=== PATIENT | female | born 1975 | race Caucasian/White ===

== ENCOUNTER 2022-08-23 08:39 | Day surgery (SDC) | payer BC, SELFPAY ==
[2022-08-23] VITALS (24 sets, daily range): BP systolic 100–124; BP diastolic 62–82; PULSE 54–75; RESP 13–18; TEMP 36.2–36.6; O2SAT 91–98; BMI 29.5
[2022-08-23 08:59] LABS: HCG Qualitative* Negative (Negative)
[2022-08-23] MEDS: LACTATED RINGERS 1000 ML 1,000 ML 100 ML IV ×2 (09:00→11:26)
[2022-08-23] MEDS: SODIUM CHLORIDE 0.9 % (FLUSH) 10 ML SYRINGE IVF (09:15)
[2022-08-23] MEDS: CLINDAMYCIN 900 MG/6 ML VIAL IVPB (10:15)
--- NOTE | 2022-08-23 10:46 | P.NB_ITS ---
Nerve Block Nerve Block Time Seen by Provider: 10:17 Date Seen: 08/23/22 Type of block requested by surgeon for post-operative analgesia: TAP Time out performed: Yes Verification of patient name: Yes Verification of date of : Yes Site marking: site marked Name of person performing procedure: Jayce Continuous monitoring Was continuous monitoring of O2 sat, B/P, secured entrance monitor, recorded every 15 minutes?: Yes Procedure Checklist: sterile prep, needles and gloves Ultrasound guided. Images saved: Yes Medications given in 5ml increments after negative aspiration: Marcaine %: 0.25 mL: 30 Needle gauge: 20 and Exparel mL: 10 Patient tolerated procedure well: Yes Additional comments: Needle noted adjacent to nerve Block Charges Block Charge (with Pro Fee): TAP Bilateral Use of Ultrasound Machine for Block: Yes- US Guidance/pain block
[2022-08-23] MEDS: BUPIVACAINE 0.25% 30 ML INJECTION (12:20)
--- NOTE | 2022-08-23 12:34 | PM.GSPRC ---
Operative Note Date of procedure: 08/23/22 Type of Procedure: 1. Laparoscopic incisional hernia repair with mesh 2. Umbilical hernia repair Procedure Description: After discussing the risks and benefits of the procedure, the patient signed informed consent.? The operative site was marked and the patient was brought to the operating room and placed on the operating table in supine position.? Care was taken to pad the patient's pressure points.?? The patient was then intubated by anesthesia.?? The operative site was then prepped and draped in the usual sterile fashion.? A time-out was then performed. Enter into the abdomen was via Nettles technique just above the umbilicus. An incision was created and dissection was taken down to the subcutaneous fat. The patient's umbilical hernia was encountered. The sac was entered and the abdominal cavity was then entered. The hernia was containing omental fat. Nettles port was placed. A left upper quadrant 5 mm port as well as a left lateral abdomen 5 mm port were then placed under direct vision. The abdomen was surveyed. There were omental adhesions to the abdominal wall below the umbilicus. These were taken down with a combination of sharp dissection with scissors, cautery and blunt dissection. A small bleeding vessel was cauterized and clipped. Once this was done the hernia was evident in the right lower quadrant. There is no bowel within this; it had all reduced spontaneously. The hernia sac was then incised along the medial aspect. This was then removed from the hernia cavity itself. The lateral aspect was noted to contain the epigastric vessels, abutting the edge of the fascia. With care the hernia sac was dissected away from this, however I did elect to clip the vessels proximally and distally around the area of dissection to prevent bleeding as they were within the area of dissection. Once this was done I examined the abdominal wall. It seemed as though the fascial edges would come together medial to lateral as opposed to superior to inferior. I decreased the abdominal pressure to 12 and then using AV lock suture I reapproximated the fascial edges. I did go around the epigastric vessels to avoid bleeding. Once this was done peritoneal flap that I had created was amputated and removed from the abdomen and discarded. The hernia measured previously approximately 5 x 5 cm and for this reason I obtained a piece of Ventralight ST mesh measuring 15 x 15 cm. This was placed in the abdomen. I made a skin jeri over the center of the hernia and through this passed a Riley-Forrest device. I then grasped the echo positioning string on the mesh and pulled this to the abdominal wall. Then using an Opti Fix Tacker I tacked the mesh circumferentially. Prior to doing this I decreased the abdominal pressure to 9. I then removed the positioning system intact and placed some additional absorbable tacks in the middle of the mesh. Once this was done the abdomen was examined for hemostasis which appeared excellent. The abdomen was then desufflated and I turned my attention to umbilical hernia repair. I removed the umbilical stalk from the hernia sac. The hernia was just slightly over 1 cm. The hernia sac was then discarded. I then closed the fascia in a vest over pants fashion. This was done with 0 Nurolon. I also placed some interrupted 0 Nurolon suture on the repair as well. The umbilicus was then reapproximated to the fascia using 3-0 Vicryl. The umbilical was then closed with 3 0 Vicryl dermal stitches. The rest of the incisions were then closed with 4-0 Monocryl subcuticular stitches. ? Sterile dressings were then applied. ? The patient was then woken and transported to the recovery area in stable condition. ? The patient tolerated the procedure well. Findings: 5 x 5 cm right lower quadrant incisional hernia Fat containing umbilical hernia. Anesthesia: GETA Surgeon: Cheyenne Pugh MD Estimated blood loss (mL): 10 Condition: stable Disposition: PACU
--- NOTE | 2022-08-23 12:42 | W.ANESCHARGE ---
Anesthesia Charges Start Date/Time Anesthesia Start Date: 08/23/22 Anesthesia Start Time: 10:10 Stop Date/Time Anesthesia Stop Date: 08/23/22 Anesthesia Stop Time: 12:43 Summary Emergency: No
[2022-08-23] MEDS: fentaNYL 100 MCG/2 ML inj 50 MCG IVP (13:25)
--- NOTE | 2022-08-23 13:27 | W.ANESCHARGE ---
Anesthesia Charges Start Date/Time Anesthesia Start Date: 08/23/22 Anesthesia Start Time: 10:10 Stop Date/Time Anesthesia Stop Date: 08/23/22 Anesthesia Stop Time: 12:43 Summary Emergency: No
[2022-08-23] MEDS: HYDROCODONE-ACETAMIN 5-325 MG 1 TAB PO ×3 (14:27→20:20)
[2022-08-23] MEDS: HYDROmorphone 0.5 mg/0.5 ml inj IVP (14:41)
[2022-08-23] MEDS: LACTATED RINGERS 1000 ML 1,000 ML 50 ML IV (15:45)
--- NOTE | 2022-08-23 19:35 | PC.NURSE ---
Tolerating regular diet. Lap Sites x4 intact with surgical glue. Pain managed with PRN medications. Up Independent to the toilet.
[2022-08-23] MEDS: GABAPENTIN 100 MG CAPSULE 200 MG PO (20:21)
[2022-08-24] MEDS: HYDROCODONE-ACETAMIN 5-325 MG 1 TAB PO ×3 (00:05→08:31)
[2022-08-24 03:00] VITALS: BP 101/73; PULSE 64; RESP 18; TEMP 36.3; O2SAT 97
--- NOTE | 2022-08-24 06:39 | PC.NURSE ---
-: SBA to assist with IV pole. c/o pain 3-02/02, Byron given with relief. Lap sites MIRNA, CDI. Abd binder and active ice on.
[2022-08-24] MEDS: KETOROLAC 15 MG/ML inj IVP (08:03)
[2022-08-24] MEDS: GABAPENTIN 100 MG CAPSULE 200 MG PO (08:32)
[2022-08-24 08:38] VITALS: BP 101/73; PULSE 65; RESP 14; TEMP 36.3; O2SAT 96
--- NOTE | 2022-08-24 09:16 | PM.DS1 ---
DS: Providers Provider Date Seen: 08/24/22 Primary care physician: Guido Vivas MD Attending Physician on discharge: Cheyenne Pugh MD DS: Diagnosis Discharge Diagnosis (1) S/P ventral herniorrhaphy: Status: Acute DS: Summary Hospital Course Hospital Course: Shannan was admitted after laparoscopic ventral and open umbilical hernia repair. She was admitted to the hospital postoperatively for pain control. On postop day 1 she was doing well, tolerating a diet urinating without difficulty and had good pain control. Time Spent with Patient Time attestation: Total time spent providing and/or coordinating discharge services: Exam Narrative: Exam Narrative: General: No acute distress Abdomen: Soft. Appropriately tender. Some bruising over the old hernia site. No erythema. No hematoma. Const: Vital Signs, click to edit/add: Vital Signs - 24 hr 08/23/22 12:40 08/23/22 12:45 08/23/22 12:50 Temperature 97.4 F L Pulse Rate 57 L 54 L 57 L Pulse Rate [Right Pulse Oximeter] Respiratory Rate 16 16 16 Blood Pressure 108/67 109/70 107/66 Blood Pressure [Le ft Arm] Blood Pressure [Ri ght Arm] Pulse Oximetry 94 98 95 Oxygen Delivery Me thod Room Air Room Air Room Air 08/23/22 12:55 08/23/22 13:00 08/23/22 13:05 Temperature 97.9 F Pulse Rate 56 L 57 L 58 L Pulse Rate [Right Pulse Oximeter] Respiratory Rate 16 16 16 Blood Pressure 109/67 104/65 106/63 Blood Pressure [Le ft Arm] Blood Pressure [Ri ght Arm] Pulse Oximetry 97 95 96 Oxygen Delivery Me thod Room Air Room Air Room Air 08/23/22 13:10 08/23/22 13:14 08/23/22 13:30 Temperature 97.8 F 97.3 F L Pulse Rate 59 L 57 L 57 L Pulse Rate [Right Pulse Oximeter] Respiratory Rate 16 16 16 Blood Pressure 112/62 111/68 107/63 Blood Pressure [Le ft Arm] Blood Pressure [Ri ght Arm] Pulse Oximetry 95 94 93 Oxygen Delivery Me thod Room Air Room Air Room Air 08/23/22 13:45 08/23/22 14:00 08/23/22 14:43 Temperature Pulse Rate 61 60 59 L Pulse Rate [Right Pulse Oximeter] Respiratory Rate 16 16 16 Blood Pressure 104/62 105/66 124/70 Blood Pressure [Le ft Arm] Blood Pressure [Ri ght Arm] Pulse Oximetry 93 94 94 Oxygen Delivery Me thod Room Air Room Air Room Air 08/23/22 15:00 08/23/22 15:30 08/23/22 16:00 Temperature Pulse Rate 60 58 L Pulse Rate [Right Pulse Oximeter] 75 Respiratory Rate 16 16 15 Blood Pressure 124/71 120/64 Blood Pressure [Le ft Arm] 110/75 Blood Pressure [Ri ght Arm] Pulse Oximetry 91 93 92 Oxygen Delivery Me thod Room Air Room Air Room Air 08/23/22 16:40 08/23/22 17:00 08/23/22 18:30 Temperature 97.1 F L 97.2 F L Pulse Rate Pulse Rate [Right Pulse Oximeter] 61 59 L 60 Respiratory Rate 15 14 13 Blood Pressure Blood Pressure [Le ft Arm] 105/74 111/74 Blood Pressure [Ri ght Arm] 100/66 Pulse Oximetry 93 95 97 Oxygen Delivery Me thod Room Air 08/23/22 19:31 08/23/22 19:47 08/23/22 20:20 Temperature 97.9 F 97.9 F 97.9 F Pulse Rate Pulse Rate [Right Pulse Oximeter] 68 Respiratory Rate 16 Blood Pressure Blood Pressure [Le ft Arm] 102/66 Blood Pressure [Ri ght Arm] Pulse Oximetry 96 Oxygen Delivery Me thod Room Air 08/23/22 21:44 08/23/22 23:00 08/23/22 23:00 Temperature 97.9 F 98 F Pulse Rate Pulse Rate [Right Pulse Oximeter] 65 65 Respiratory Rate 16 Blood Pressure Blood Pressure [Le ft Arm] 124/82 Blood Pressure [Ri ght Arm] Pulse Oximetry 96 Oxygen Delivery Me thod Room Air 08/24/22 03:00 08/24/22 08:38 Temperature 97.4 F L 97.3 F L Pulse Rate Pulse Rate [Right Pulse Oximeter] 64 65 Respiratory Rate 18 14 Blood Pressure Blood Pressure [Le ft Arm] 101/73 101/73 Blood Pressure [Ri ght Arm] Pulse Oximetry 97 96 Oxygen Delivery Me thod Room Air Room Air Discharge Plan Discharge Disposition: Home, Self-Care Discharging Surgeon: Cheyenne Pugh Follow-Up Appointment: 2 weeks Prescriptions: New hydrocodone-acetaminophen 5-325 mg Tablet 1 - 2 tab PO Q6H PRN (Reason: Pain) Qty: 30 0RF gabapentin 100 mg Capsule 200 mg PO TID Qty: 21 0RF Activity Level: No strenuous activity Activity Detail: No lifting > 20 lbs x 4 weeks Discharge Diet: Regular Patient Instructions: Hydrocodone/Acetaminophen (By mouth), Gabapentin (By mouth), Laparoscopic Herniorrhaphy (DC), Surgical Site Infections (DC), General Anesthesia (DC), Post-Operative Instructions: Hernia Repair Additional Instructions: Wound care: Your sutures are under the skin and will dissolve over time. Leave steri strips (white bandages) over incisions until they fall off (or remove after 7 days). OK to shower tomorrow but avoid bathing, soaking or swimming for 2 weeks. Pat the incisions dry. No need to wash or scrub the area. Apply ice to the area as needed for swelling. It is also OK to use a heating pad if this provides more comfort to you. Pain control: You were prescribed a pain medication. This medication contains acetaminophen (Tylenol). If you are taking your prescribed pain pills 4 times daily, do not take additional acetaminophen. As your pain improves, you can try taking acetaminophen instead of the prescribed pain pill. It is ok to take Ibuprofen or Naproxen (per directions on packaging). This medication helps with inflammation and swelling. Take an [id number]-odv-iszifpl stool softener while you are taking prescribed pain medications to help alleviate constipation. I recommend Senna and/or Colace. Take as directed on package. If you have not had a bowel movement in 3 days, try taking Miralax as directed on the package. All of these are available over the counter. Follow-up Follow up with Dr. Pugh in 2-3 weeks Please call if you are experiencing severe pain, nausea, vomiting, difficulty urinating, fever or have not had bowel movement in 4 days after surgery. Forms: Work/Release Restrictions Follow-up: Cheyenne Pugh MD [Staff Physician] - 09/06/22 1:00 pm ([facility]. [phone]) Guido Vivas MD [Primary Care Provider] - Discharge Orders: Discharge Order (Routine); Ordered 08/24/22 Ordered By: Cheyenne Pugh
--- NOTE | 2022-08-24 12:00 | PC.NURSE ---
Patient alert and oriented x4, has lap sites x4, patient stated pain was 4/10 and managed with PRN pain medications, tolerating a regular diet no N/V. Patient up independently. Discontinued saline lock, reviewed discharge instructions with patient and . supportive. Patient discharged to home at 1100 with .
== END 2022-08-24 11:00 | disposition home or self-care (01) ==
LOC: OR 08:41 → MEDSURG 08:42
PROVIDERS: PCP Family Medicine; Visit Provider Surgery
PROC: 0WQF4ZZ Repair Abdominal Wall, Percutaneous Endoscopic Approach (ICD-10-PCS; CPT 49654; principal; 2022-08-23 10:00)
DX: K43.2 Incisional hernia without obstruction or gangrene (principal); K42.9 Umbilical hernia without obstruction or gangrene
CPT/HCPCS: 49654; 49585; 00790; 00832; 64488; 76942; 84703; A4467; A9270; C1781; C9290; J0330; J1100; J1170; J1200; J1885; J2405; J2704; J2710; J3010; J3490; J7120; S0077

== ENCOUNTER 2023-07-11 08:31 | Outpatient (CLI) | payer OTHER, SELFPAY | END 2023-07-11 08:32 | disposition home or self-care (01) | PROVIDERS: PCP Family Medicine; Visit Provider Family Medicine | DX: Z00.00 Encounter for general adult medical examination without abnormal findings (principal); Z82.3 Family history of stroke; Z11.59 Encounter for screening for other viral diseases; Z13.6 Encounter for screening for cardiovascular disorders | CPT/HCPCS: 80053; 80061; 81241; 84146; 85240; 85245; 85246; 85384; 85610; 85730; 86803 ==

== ENCOUNTER 2023-07-18 07:51 | Outpatient (CLI) | payer OTHER, SELFPAY ==
--- NOTE | 2023-07-18 08:00 | CRLHL7_ITS ---
For Patients: As a result of the Century Cures Act, medical imaging exams and procedure reports are released immediately into your electronic medical record. You may view this report before your referring provider. If you have questions, please contact your health care provider. Indication: Intra-abdominal and pelvic swelling, mass and lump, check for hernia reoccurrence Technique: Noncontrast CT abdomen and pelvis Please note that all CT scans at this facility use dose modulation, iterative reconstruction, and/or weight-based dosing when appropriate to reduce radiation dose to as low as reasonably achievable. Comparison: 01/12/2022 Findings: Postoperative changes of right lower quadrant abdominal wall hernia repair noted. Postop changes to the rectus abdominus muscle noted without fluid collection, abscess, subcutaneous emphysema or recurrent hernia. The bladder is normal. Normal noncontrast enhanced uterus. Ovaries appear normal. No bowel obstruction. Similar mildly prominent right lower quadrant mesenteric lymph nodes. Numerous subcentimeter central mesenteric lymph nodes also again noted. Normal noncontrast enhanced liver. Gallbladder is normal. Normal pancreas. Spleen normal. Normal adrenal glands. No hydronephrosis. No solid renal mass. Punctate calcification within the right kidney. Mild dependent atelectasis noted in both lung bases. Stable fat filled periumbilical hernia measuring 2.1 cm. Impression: Postoperative changes of right lower quadrant hernia repair without recurrent hernia, seroma or abscess. Postop changes to the rectus abdominus muscle noted accounting for the clinical symptoms. Stable mildly prominent lymph nodes within mesenteric fat, particularly in the right lower quadrant. Please note that all CT scans at this facility use dose modulation, iterative reconstruction, and/or weight-based dosing when appropriate to reduce radiation dose to as low as reasonably achievable. Dictated by Guido Castro MD @ 07/18/2023 9:17:08 AM (Electronically Signed)
== END 2023-07-18 07:52 | disposition home or self-care (01) ==
LOC: CT 07:52
PROVIDERS: PCP Family Medicine; Visit Provider Surgery
DX: R19.00 Intra-abdominal and pelvic swelling, mass and lump, unspecified site (principal)
CPT/HCPCS: 74176

== ENCOUNTER 2023-08-03 13:05 | Outpatient (CLI) | payer OTHER, SELFPAY ==
--- NOTE | 2023-08-03 13:20 | CRLHL7_ITS ---
For Patients: As a result of the Century Cures Act, medical imaging exams and procedure reports are released immediately into your electronic medical record. You may view this report before your referring provider. If you have questions, please contact your health care provider. BILATERAL SCREENING MAMMOGRAM WITH COMPUTER-AIDED DETECTION AND TOMOSYNTHESIS TECHNIQUE: CC and MLO views were obtained. These mammographic images have been obtained using full-field digital technique. These mammographic images were interpreted with the benefit of computer-aided detection. Breast Tomosynthesis was used in this interpretation. COMPARISON FILM: 08/24/21, 08/20/20, 12/22/18. FINDINGS: There are scattered areas of fibroglandular density IMPRESSION: There is no radiographic evidence for malignancy. ASSESSMENT: BI-RADS Category 1: Negative RECOMMENDATION: Routine screening mammogram in 1 year. A lay language report of this examination will be provided to the patient. Guido Castro M.D. Diagnostic Radiologist [email or web address] JASON/Dictated by: uGido Castro MD @ 08/04/2023 12:46:00 PM (Electronically Signed)
== END 2023-08-03 13:06 | disposition home or self-care (01) ==
LOC: MAMMO 13:06
PROVIDERS: PCP Family Medicine; Visit Provider Family Medicine
DX: Z12.31 Encounter for screening mammogram for malignant neoplasm of breast (principal)
CPT/HCPCS: 77063; 77067

== ENCOUNTER 2023-08-08 11:50 | Outpatient (CLI) | payer OTHER, SELFPAY | END 2023-08-08 11:51 | disposition home or self-care (01) | PROVIDERS: PCP Family Medicine; Visit Provider Obstetrics & Gynecology | DX: N97.9 Female infertility, unspecified (principal) | CPT/HCPCS: 82670; 83001; 83520; 84146; 84443 ==

== ENCOUNTER 2024-03-19 07:28 | Outpatient (CLI) | payer OTHER, SELFPAY | END 2024-03-19 07:29 | disposition home or self-care (01) | LOC: NFLDREF 03-21 04:37 | PROVIDERS: PCP Family Medicine; Referring Provider Family Medicine; Visit Provider Physician Assistant Medical | DX: R39.15 Urgency of urination (principal); N39.0 Urinary tract infection, site not specified; B37.2 Candidiasis of skin and nail | CPT/HCPCS: 87086; 87186 ==

== ENCOUNTER 2024-03-21 16:11 | Emergency (ER) | payer OTHER, SELFPAY ==
[2024-03-21] VITALS (14 sets, daily range): BP systolic 102–147; BP diastolic 69–93; PULSE 58–80; RESP 16; TEMP 37.2; O2SAT 87–98; BMI 32.4
--- NOTE | 2024-03-21 17:05 | ED_ITS ---
HPI - Altered Mental Status General Chief Complaint: Altered Mental Status Stated Complaint: UC M and T-UTI-given meds now mood swings Time Seen by Provider: 03/21/24 16:27 History of Present Illness HPI narrative: This 48-year-old female comes in because of excessive mood swings. 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 She came into urgent care 2 days ago because of dysuria symptoms. She was prescribed Keflex and Diflucan and has taken those medicines until the end of yesterday. Yesterday she began having a labile mood. She did go to another urgent care visit and had a complete blood count drawn with normal results. Her dysuria symptoms have returned back to normal but she is rather labile in her mood. Within a minute or 2 she can be crying and then laughing. She does not have any confusion or disorientation. She denies using any alcohol or street drugs. She does not take any other medicines except for an antidepressant medicine which she did not take this morning. She denies any exposure to chemicals on the farm. Related Data Previous Rx's ?Medication ?Instructions ?Recorded escitalopram oxalate 10 mg tablet 10 mg PO QDAY #90 tabs 09/12/23 (Lexapro) cephalexin 500 mg capsule 500 mg PO BID 7 days #14 caps 03/19/24 fluconazole 200 mg tablet 200 mg PO .qod #2 tabs 03/19/24 (Diflucan) Allergies Allergy/AdvReac Type Severity Reaction Status Date / Time penicillin V Allergy Severe Verified 03/21/24 16:30 prednisone Allergy Intermediate Agitated Verified 03/21/24 16:30 Review of Systems Status of ROS: Reports: 10 or more systems reviewed and unremarkable except as noted in History and below Narrative: Constitutional: No fevers, no weight gain or loss. Eyes: No discharge. No vision changes. HENT: No congestion, no sore throat, no ear pain. Cardiovascular: No chest pain, no palpitations. Respiratory: No shortness of breath, no wheezes, no cough. Gastrointestinal: No abdominal pain, no vomiting, no diarrhea. Genitourinary: No dysuria, no hematuria. Musculoskeletal: Normal range of motion. Skin: No rashes, no pruritis. Neurological: No dizziness, weakness, sensory change, speech change. Endo/Heme/Allergies: No bruising or bleeding. No polydipsia. Pysch: no suicidality, no anxiety, no insomnia. Labile mood. All other systems reviewed and are negative. [facility] Medical History (Updated 03/21/24 @ 19:37 by Justice Machado MD) Yeast dermatitis ?B37.2 - Candidiasis of skin and nail (ICD-10) UTI (urinary tract infection) ?N39.0 - Urinary tract infection, site not specified (ICD-10) Thrombosed external hemorrhoid ?K64.5 - Perianal venous thrombosis (ICD-10) Benign positional vertigo ?H81.10 - Benign paroxysmal vertigo, unspecified ear (ICD-10) Surgical History (Updated 08/08/23 @ 14:24 by Trina Toth MD) Incisional hernia ?K43.2 - Incisional hernia without obstruction or gangrene (ICD-10) Umbilical hernia ?K42.9 - Umbilical hernia without obstruction or gangrene (ICD-10) History of tonsillectomy ?Z90.89 - Acquired absence of other organs (ICD-10) H/O pelvic surgery ?Z98.890 - Other specified postprocedural states (ICD-10) S/P section ?Z98.891 - History of uterine scar from previous surgery (ICD-10) Family History (Updated 07/11/23 @ 08:35 by Leda Valentin MD) Mother Breast cancer Paternal Grandmother Breast cancer Diabetes Father Diabetes Heart disease Pulmonary embolism Paternal Grandmother Stroke Maternal Grandmother Heart disease Social History (Updated 06/23/22 @ 13:47 by Cheyenne Pugh MD) 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 Minimal alcohol use. Highest level of school completed/degree received: Master's degree Smoking Status: Never smoker How often do you have a drink containing alcohol: never AUDIT-C Alcohol total score: 0 Non-prescribed substance use: denies use Caffeine: Yes (soda) Little interest or pleasure in doing things: not at all Feeling down, depressed, or hopeless: not at all service: No Exam Narrative: Exam Narrative: Constitutional: Well-developed, well-nourished, no acute distress. HEENT: Normocephalic, atraumatic. Neck: Normal range of motion. Nontender. Supple. Heart: Regular. No murmurs. Normal rate. Intact distal pulses. Lungs: Clear to auscultation. No chest discomfort. No wheezes, rhonchi, or rales. Abdomen: Normal bowel sounds. Nontender. No rebound tenderness. Genitalia: Deferred. Back: No midline tenderness. Normal range of motion. Extremities: Normal range of motion. No injury. Skin: Intact. No rash. Warm. No erythema or pallor. Neurologic: No altered sensation. No weakness. Alert and oriented x3. No confusion. Psychiatric: No suicidality. No anxiety or depression. No insomnia. She states that she feels tired. Nursing notes and vitals signs are reviewed. Const: Vital Signs, click to edit/add: Vital Signs - 24 hr 03/21/24 16:24 03/21/24 19:27 Temperature 98.9 F Pulse Rate [Right Pulse Oximeter] 75 70 Respiratory Rate 16 16 Blood Pressure [Ri ght Upper Arm] 147/93 H Pulse Oximetry 97 98 Oxygen Delivery Me thod Room Air Course Vital Signs Vital signs: Initial Vital Signs Temperature 98.9 F 03/21/24 16:24 Temperature Source Temporal Artery Scan 03/21/24 16:24 Pulse Rate 75 03/21/24 16:24 Respiratory Rate 16 03/21/24 16:24 Blood Pressure 147/93 H 03/21/24 16:24 Blood Pressure Mean 111 H 03/21/24 16:24 Blood Pressure Position Semi-Fowlers 03/21/24 16:24 Pulse Oximetry 97 03/21/24 16:24 Oxygen Delivery Method Room Air 03/21/24 16:24 Vital Signs Temperature 98.9 F 03/21/24 16:24 Pulse Rate 75 03/21/24 16:24 Respiratory Rate 16 03/21/24 16:24 Blood Pressure 147/93 H 03/21/24 16:24 Pulse Oximetry 97 03/21/24 16:24 Oxygen Delivery Method Room Air 03/21/24 16:24 Temperature 98.9 F 03/21/24 16:24 Pulse Rate 70 03/21/24 19:27 Respiratory Rate 16 03/21/24 19:27 Blood Pressure 147/93 H 03/21/24 16:24 Pulse Oximetry 98 03/21/24 19:27 Oxygen Delivery Method Room Air 03/21/24 16:24 MDM - Altered Mental Status MDM Narrative Medical decision making narrative: This patient comes in with concern about her mood being very labile. She is normally not this way at all. She did take a new medicine for urinary tract infection. It was Keflex and Diflucan. She has not taken these medicines today and her urinary symptoms have improved. She and her were very concerned about her labile mood. Within a minute or 2 she was going from crying to laughing. However her thought process and conversation was normal. She was not inappropriate with any of her thinking and is not disoriented. Labs are acquired here in these all returned with normal findings. There are no results to explain her symptoms. Meanwhile as lab results were pending the patient's symptoms have significantly improved to where she feels almost back to normal. She does state that she feels tired. She is okay to be discharged home. I advised her not to resume the medicines that she had prescribed for treating the urinary tract infection. Lab Data Labs: Lab Results 03/21/24 03/21/24 Range/Units 17:04 17:13 WBC 6.03 (4.50-11.00) K/uL RBC 4.49 (4.00-5.20) m/uL Hgb 13.4 (12.0-16.0) gm/dL Hct 39.7 (33.0-51.0) % MCV 88 (80-100) fL MCH 30 (26-34) pg MCHC 34 (32-36) gm/dL RDW Coeff of Nancy 12.8 (11.5-15.5) % Plt Count 398 (140-440) K/uL Neut % (Auto) 52.0 (42.0-72.0) % Lymph % (Auto) 32.8 (20-44) % Laporte % (Auto) 9.6 (0.0-11.0) % Eos % (Auto) 5.1 (0.0-7.0) % Baso % (Auto) 0.3 (0.0-3.0) % Neut # (Auto) 3.13 (1.7-7.0) K/uL Lymph # (Auto) 1.98 (0.90-2.90) K/uL Laporte # (Auto) 0.60 (0.00-0.90) K/UL Eos # (Auto) 0.31 (0.00-0.50) K/uL Baso # (Auto) 0.02 (0.00-0.30) K/uL Abs Immat Gran (auto) 0.01 (0.00-0.30) K/uL Imm/Tot Granulo (auto) 0.2 % Sodium 137 (135-149) mmol/L Potassium 4.3 (3.6-5.1) mmol/L Chloride 103 (96-114) mmol/L Carbon Dioxide 24 (20-32) mmol/L Anion Gap 10 (7-15) mEq/L BUN 9 (5-24) mg/dL Creatinine 0.7 (0.5-1.5) mg/dL Estimated Creat Clear 90.36 Estimated GFR 108 ml/min Glucose 97 (60-115) mg/dL Calcium 9.3 (8.4-10.6) mg/dL Total Bilirubin 0.5 (0.1-1.5) mg/dL Direct Bilirubin 0.4 (0.0-0.5) mg/dL AST 23 (12-35) U/L ALT 19 (4-35) U/L Alkaline Phosphatase 55 (40-150) U/L C-Reactive Protein 1.1 H (0.5-1.0) mg/dL Total Protein 6.9 (6.0-8.3) g/dL Albumin 4.3 (3.3-5.0) g/dL TSH 2.380 (0.270-4.20) uIU/mL Urine Color Yellow (Yellow) Urine Appearance Clear (Clear) Urine pH 6.0 (5.0-8.5) Ur Specific [place] 1.020 (1.000-1.030) Urine Protein Negative (Negative) Urine Glucose (UA) Negative (Negative) Urine Ketones Negative (Negative) Urine Blood Negative (Negative) Urine Nitrite Negative (Negative) Urine Bilirubin Negative (Negative) Urine Urobilinogen 0.2 (0.2-1.0) Ur Leukocyte Esterase Negative (Negative) Urine RBC 0-2 (0-2) Urine WBC 2-5 (0-5) Ur Squamous Epith Cells Few (None-Few) Urine Bacteria None (None) Urine Opiates Screen Negative (Negative) Ur Oxycodone Screen Negative (Negative) Urine Methadone Screen Negative (Negative) Ur Barbiturates Screen Negative (Negative) U Tricyclic Antidepress Negative (Negative) Ur Phencyclidine Scrn Negative (Negative) Ur Amphetamines Screen Negative (Negative) U Methamphetamines Scrn Negative (Negative) U Benzodiazepines Scrn Negative (Negative) Urine Cocaine Screen Negative (Negative) U Marijuana (THC) Screen Negative (Negative) Ur Drug Screen Comment See Note Discharge Plan Discharge Clinical Impression: Labile mood Patient Disposition: Home w/ Parent or Adult Condition: Improved Additional Instructions: Continue current plans. Follow up with MD as needed or return if symptoms are worsening. Prescriptions: No Action escitalopram oxalate [Lexapro] 10 mg tablet 10 mg PO QDAY Qty: 90 3RF cephalexin 500 mg capsule 500 mg PO BID 7 Days Qty: 14 0RF Rx Instructions: Patient has had cephalosporins in the past and tolerated well. fluconazole [Diflucan] 200 mg tablet 200 mg PO .qod Qty: 2 1RF Follow Up/Referrals: Leda Valentin MD [Primary Care Provider] - Stand Alone Forms: [employer] Info Instructions
[2024-03-21 17:30] LABS: Basophils Absolute Auto 0.02 K/uL (0.00-0.30); Basophils Percent Auto 0.3 % (0.0-3.0); Eosinophils Absolute Auto 0.31 K/uL (0.00-0.50); Eosinophils Percent Auto 5.1 % (0.0-7.0); Hematocrit 39.7 % (33.0-51.0); Hemoglobin* 13.4 gm/dL (12.0-16.0); Immature Granulocytes Abs Auto 0.01 K/uL (0.00-0.30); Immature Granulocytes Pct Auto 0.2 %; Lymphocytes Absolute Auto 1.98 K/uL (0.90-2.90); Lymphocytes Percent Auto 32.8 % (20-44); Mean Corpuscular HGB Conc 34 gm/dL (32-36); Mean Corpuscular Hemoglobin 30 pg (26-34); Mean Corpuscular Volume 88 fL (80-100); Monocytes Percent Auto 9.6 % (0.0-11.0); Neutrophils Absolute Auto 3.13 K/uL (1.7-7.0); Platelet Count* 398 K/uL (140-440); RDW Coefficient of Variation % 12.8 % (11.5-15.5); Red Blood Count 4.49 m/uL (4.00-5.20); White Blood Count* 6.03 K/uL (4.50-11.00)
[2024-03-21 17:33] LABS: Appearance Urine Clear (Clear); Bilirubin Urine Negative (Negative); Blood Urine Negative (Negative); Color Urine Yellow (Yellow); Glucose Urine Negative (Negative); Ketones Urine Negative (Negative); Leukocyte Esterase Urine Negative (Negative); Nitrite Urine Negative (Negative); Protein Urine Negative (Negative); Urobilinogen Urine 0.2 (0.2-1.0)
[2024-03-21 17:37] LABS: Slide Review Reflex No
[2024-03-21 17:39] LABS: Chloride* 103 mmol/L (96-114); Potassium* 4.3 mmol/L (3.6-5.1); Sodium* 137 mmol/L (135-149)
[2024-03-21 17:41] LABS: Creatinine* 0.7 mg/dL (0.5-1.5); Est. Creatinine Clearance* 90.36; Estimated Glomerular Filt Rate 108 ml/min
[2024-03-21 17:42] LABS: Anion Gap 10 mEq/L (7-15); Blood Urea Nitrogen* 9 mg/dL (5-24); Carbon Dioxide* 24 mmol/L (20-32); Glucose* 97 mg/dL (60-115)
[2024-03-21 17:43] LABS: Calcium* 9.3 mg/dL (8.4-10.6)
[2024-03-21 17:43] LABS: Amphetamine Screen Urine Negative (Negative); Barbiturate Screen Urine Negative (Negative); Benzodiazepines Screen Urine Negative (Negative); Cannabinoid Screen Urine Negative (Negative); Cocaine Screen Urine Negative (Negative); Methadone Screen Urine Negative (Negative); Methamphetamines Screen Urine Negative (Negative); Opiate Screen Urine Negative (Negative); Oxycodone Screen Urine Negative (Negative); Phencyclidine Screen Urine Negative (Negative); RBC Urine 0-2 (0-2); Squamous Epithelial Cell Urine Few (None-Few); Tricyclic Antidepressant Urine Negative (Negative)
[2024-03-21 17:45] LABS: C Reactive Protein* 1.1 mg/dL (0.5-1.0)
[2024-03-21 19:12] LABS: Albumin* 4.3 g/dL (3.3-5.0)
[2024-03-21 19:14] LABS: Bilirubin Direct* 0.4 mg/dL (0.0-0.5); Bilirubin Total* 0.5 mg/dL (0.1-1.5); Total Protein* 6.9 g/dL (6.0-8.3)
[2024-03-21 19:15] LABS: Alanine Aminotransferase* 19 U/L (4-35); Alkaline Phosphatase* 55 U/L (40-150); Aspartate Amino Transferase* 23 U/L (12-35)
== END 2024-03-21 19:43 | disposition home or self-care (01) ==
PROVIDERS: Emergency Provider Emergency Medicine Emergency Medical Services; PCP Family Medicine
DX: F39 Unspecified mood [affective] disorder (principal)
CPT/HCPCS: 36415; 80048; 80076; 80306; 81001; 84443; 85025; 86140; 99283; 99284

== ENCOUNTER 2024-08-06 09:05 | Outpatient (CLI) | payer OTHER, SELFPAY ==
--- NOTE | 2024-08-06 09:15 | CRLHL7_ITS ---
For Patients: As a result of the Cures Act, medical imaging exams and procedure reports are released immediately into your electronic medical record. You may view this report before your referring provider. If you have questions, please contact your health care provider. BILATERAL SCREENING MAMMOGRAM WITH COMPUTER-AIDED DETECTION AND TOMOSYNTHESIS TECHNIQUE: CC and MLO views were obtained. These mammographic images have been obtained using full-field digital technique. These mammographic images were interpreted with the benefit of computer-aided detection. Breast Tomosynthesis was used in this interpretation. COMPARISON FILM: 08/03/23, 08/24/21, 08/20/20. FINDINGS: There are scattered areas of fibroglandular density IMPRESSION: There is no radiographic evidence for malignancy. ASSESSMENT: BI-RADS Category 1: Negative RECOMMENDATION: Routine screening mammogram in 1 year. A lay language report of this examination will be provided to the patient. Guido Castro M.D. Diagnostic Radiologist [email or web address] [email or web address]/yoel / bM/Dictated by: Guido Castro MD @ 08/10/2024 10:26:00 AM (Electronically Signed)
== END 2024-08-06 09:06 | disposition home or self-care (01) ==
LOC: MAMMO 09:06
PROVIDERS: PCP Family Medicine; Visit Provider Family Medicine
DX: Z12.31 Encounter for screening mammogram for malignant neoplasm of breast (principal)
CPT/HCPCS: 77063; 77067

== ENCOUNTER 2024-11-27 13:00 | Outpatient (CLI) | payer OTHER, SELFPAY | END 2024-11-27 13:01 | disposition home or self-care (01) | PROVIDERS: PCP Family Medicine; Visit Provider Family Medicine | DX: R79.82 Elevated C-reactive protein (CRP) (principal); Z13.6 Encounter for screening for cardiovascular disorders | CPT/HCPCS: 80053; 80061; 86140 ==

== ENCOUNTER 2025-03-15 19:51 | Emergency (ER) | payer OTHER, SELFPAY ==
--- OUTSIDE RECORDS SUMMARY | 2025-03-15 19:54 | XMS_ITS | Clinical Summary ---
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 12/23/2021 Drusen (degenerative) of retina 08/23/2006 Overview (08/23/2006): R HEADACHE 10/09/1999 Family History Medical History Relation Name Comments Hypertension Maternal Grandfather Other Maternal Grandfather glaucom a Hypertension Maternal Grandmother Genetic Other HYPERTENSION~DI ABETES~STROKE~ARTHRITIS Hypertension Paternal Grandfather Diabetes Paternal Grandmother Relation Name Status Comments Maternal Grandfather Maternal Grandmother Other Paternal Grandfather Paternal Grandmother Social History Tobacco Use Types Packs/Day Years Used Date Smoking Tobacco: Never Alcohol Use Standard Drinks/Week Comments Not Asked 0 (1 standard drink = 0.6 oz pur e alcohol) Comments Unknown Sex and Gender Information Value Date Recorded Sex Assigned at Not on file 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 Gender Identity Not on file Sexual Orientation Not on file Obstetrics History Plan of Treatment Upcoming Encounters Date Type Department Care Team (Late st Contact Info) Description 04/08/2025 9:00 AM CDT Telemedicine [facility] [address] [place] [address] Yue Vilchis, [place], [facility] [address] [place] [address] Health Maintenance Due Date Last Done Comments Tdap 1988 Depression screening for age 12+ 1989 HIV for age 15-65 1992 BMI (ht and wt on same day) for age 18+ 1995 Hepatitis C screening for age 18-79 1995 Hepatitis B series for 19+ (1 of 3 - 19+ 3-dose series) 1996 Tetanus booster 1997 Colonoscopy through age 75 2022 Lipids for age 45-75 2022 Mammogram for age 45-75 2022 COVID-19 vaccine series ( season) 2024 08/17/2021, 01/01/2021, 12/13/2020 Influenza Vaccine (Season Ended) 2025 Pap test for age 21-65 07/11/2026 , 07/11/2023, 11/04/2017, Additional history exists Pneumococcal series for age 6-49 Aged Out No longer eligible based on patient's age to complete this topic Procedures Procedure Name Priority Date/Time Associated Diagnosis Comments HPV HIGH RISK Routine 07/11/2023 9:00 AM CDT from Last 3 Months or Most Recently Relevant to Health Maintenance Results * HPV HIGH RISK (07/11/2023 9:00 AM CDT) TYPE 16 Negative Negative 07/14/2023 2:18 PM CDT [facility] [employer] [facility] TYPE 18 Negative Negative 07/14/2023 2:18 PM CDT [facility] OTHER HIGH RISK TYPES Negative Negative 07/14/2023 2:18 PM CDT [facility] Other (Cervical) 07/11/2023 9:00 AM CDT 07/12/2023 10:19 AM CDT Narrative [facility] - 07/14/2023 2:18 PM CDT HPV types 16, 18, 31, 33, 35, 39, 45, 51, 52, 56, 58, 59, 66 and 68 DNA were undetectable or below the pre-set threshold. Methodology: June Herson 4800 HPV Test us Leda Valentin MD MICROBIOLOGY Final Res ult [facility] [address] [place] [address], [place] from Last 3 Months or Most Recently Relevant to Health Maintenance Insurance Care Teams Linux Unix Engineer Relationship Specialty Start Date End Date , No Primary . PCP - General 08/12/06
[2025-03-15 20:00] VITALS: BP 153/89; PULSE 90; RESP 18; TEMP 36.9; O2SAT 99; BMI 31.6
--- NOTE | 2025-03-15 20:14 | ED_ITS ---
HPI - General Adult General Chief complaint: Laceration/Wound Stated complaint: deep cut on the left hands thumb Time Seen by Provider: 03/15/25 20:13 History of Present Illness HPI narrative: CC: Left Thumb Laceration pt. cut thumb with knife while cutting vegetable. pt. states she cut to the bone. 49-year-old woman presenting to the emergency department after cutting her left thumb while cutting/harvesting vegetables. I believe was wearing gloves. She is concerned she has cut to the bone. She has controlled bleeding. No described loss of sensation. Related Data Previous Rx's ?Medication ?Instructions ?Recorded escitalopram oxalate 10 mg tablet 10 mg PO QDAY #90 ta bs 11/27/24 (Lexapro) propranolol 10 mg tablet 10 mg PO TID PRN anxiety #30 tabs 11/27/24 Allergies Allergy/AdvReac Type Severity Reaction Status Date / Time penicillin V Allergy Severe Verified 03/15/25 20:02 prednisone Allergy Intermediate Agitated Verified 03/15/25 20:02 cephalexin AdvReac Severe disoriented Verified 03/15/25 20:02 Review of Systems Status of ROS: Reports: 6 or more systems reviewed and unremarkable except as noted in History and below [facility] Medical History Nipple discharge ?N64.52 - Nipple discharge (ICD-10) Yeast dermatitis ?B37.2 - Candidiasis of skin and nail (ICD-10) Family history of clotting disorder ?Z83.2 - Family history of diseases of the blood and blood-forming organs and certain disorders involving the immune mechanism (ICD-10) Benign positional vertigo ?H81.10 - Benign paroxysmal vertigo, unspecified ear (ICD-10) Surgical History Incisional hernia ?K43.2 - Incisional hernia without obstruction or gangrene (ICD-10) Umbilical hernia ?K42.9 - Umbilical hernia without obstruction or gangrene (ICD-10) History of tonsillectomy ?Z90.89 - Acquired absence of other organs (ICD-10) H/O pelvic surgery ?Z98.890 - Other specified postprocedural states (ICD-10) S/P section ?Z98.891 - History of uterine scar from previous surgery (ICD-10) Family History Mother Breast cancer Paternal Grandmother Diabetes Father Diabetes Heart disease Pulmonary embolism Paternal Grandmother Stroke Maternal Grandmother Heart disease Breast cancer Social History 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 Minimal alcohol use. Highest level of school completed/degree received: Master's degree Smoking Status: Never smoker Second hand tobacco smoke exposure: No How often do you have a drink containing alcohol: never AUDIT-C Alcohol total score: 0 Non-prescribed substance use: denies use Caffeine: Yes (soda) service: No Exam Narrative: Exam Narrative: Very pleasant. Flushed and tanned. 3 quarter-inch laceration over the dorsum the left thumb over the interphalangeal joint. Spot of debris at the edge of the wound. There is tissue looks like she might have just disrupted the very top portion of the tendon sheath but she has good strength and I do not see actual tendon during flexion or extension at the IP or MCP joint. Const: Vital Signs, click to edit/add: Vital Signs - 24 hr 03/15/25 20:00 Temperature 98.5 F Pulse Rate [Right Pulse Oximeter] 90 Respiratory Rate 18 Blood Pressure [Ri ght Upper Arm] 153/89 H Pulse Oximetry 99 Oxygen Delivery Me thod Room Air Documenting provider has reviewed patient's vital signs: yes Course Vital Signs Vital signs: Initial Vital Signs Temperature 98.5 F 03/15/25 20:00 Temperature Source Temporal Artery Scan 03/15/25 20:00 Pulse Rate 90 03/15/25 20:00 Respiratory Rate 18 03/15/25 20:00 Blood Pressure 153/89 H 03/15/25 20:00 Blood Pressure Mean 110 H 03/15/25 20:00 Blood Pressure Position Sitting 03/15/25 20:00 Pulse Oximetry 99 03/15/25 20:00 Oxygen Delivery Method Room Air 03/15/25 20:00 Vital Signs Temperature 98.5 F 03/15/25 20:00 Pulse Rate 90 03/15/25 20:00 Respiratory Rate 18 03/15/25 20:00 Blood Pressure 153/89 H 03/15/25 20:00 Pulse Oximetry 99 03/15/25 20:00 Oxygen Delivery Method Room Air 03/15/25 20:00 Temperature 98.5 F 03/15/25 21:46 Pulse Rate 80 03/15/25 21:46 Respiratory Rate 18 03/15/25 21:46 Blood Pressure 144/74 H 03/15/25 21:46 Pulse Oximetry 99 03/15/25 21:43 Oxygen Delivery Method Room Air 03/15/25 21:43 Medications Administered Medications: Discontinued Medications Generic Name Dose Route Start Last Admin Trade Name Ashely PRN Reason Stop Dose Admin Bupivacaine HCl 2 ml 03/15/25 21:44 03/15/25 21:15 Bupivacaine 0.25% 30 Ml INJECTION 03/15/25 21:45 2 ml ONCE ONE Administration Medical Decision Making MDM Narrative Medical decision making narrative: Had soaked her hand for a time in Hibiclens and water solution. Anesthetized with digital block with Sensorcaine. I further cleansed with Shur- Clens solution and rinsed with normal saline. Sutured with 5 0 Ethilon interrupted sutures. Good wound approximation achieved. Stays closed with flexion of the thumb although light oozing of blood on the proximal aspect of this wound. Placed antibiotic ointment and Band-Aid and light pressure dressing. I have contacted later to verify tetanus status. I suspect that is current but I do not have documentation of this. See patient discharge plan for further discussion sutures out in 8 - 10 days. antibiotic ointment for 4 - 5 days and then to a dry dressing. ok to get wet but try not to soak while sutures are in. Watch for spreading redness after 2 days accompanied by heat, swelling, marked increase in pain, purulent drainage. Medical Records Medical records reviewed: Yes I reviewed the patient's medical records Discharge Plan Discharge Clinical Impression: Laceration of thumb Patient Disposition: Home, Self-Care Condition: Improved Additional Instructions: sutures out in 8 - 10 days. antibiotic ointment for 4 - 5 days and then to a dry dressing. ok to get wet but try not to soak while sutures are in. Watch for spreading redness after 2 days accompanied by heat, swelling, marked increase in pain, purulent drainage. Prescriptions: No Action escitalopram oxalate [Lexapro] 10 mg tablet 10 mg PO QDAY Qty: 90 3RF propranolol 10 mg tablet 10 mg PO TID PRN (Reason: anxiety) Qty: 30 1RF Follow Up/Referrals: Leda Valentin MD [Primary Care Provider, Family Practice] Stand Alone Forms: [employer] Info Instructions
[2025-03-15] MEDS: BUPIVACAINE 0.25% 30 ML INJECTION (21:15)
[2025-03-15 21:43] VITALS: BP 144/74; PULSE 80; RESP 18; TEMP 36.9; O2SAT 99
[2025-03-15 21:46] VITALS: BP 144/74; PULSE 80; RESP 18; TEMP 36.9
== END 2025-03-15 21:46 | disposition home or self-care (01) ==
PROVIDERS: Emergency Provider Family Medicine; PCP Family Medicine
DX: S61.012A Laceration without foreign body of left thumb without damage to nail, initial encounter (principal); W26.0XXA Contact with knife, initial encounter
CPT/HCPCS: 12002; 99283; 99284; J0665

== ENCOUNTER 2025-08-08 12:56 | Outpatient (CLI) | payer OTHER, SELFPAY ==
--- NOTE | 2025-08-08 13:20 | CRLHL7_ITS ---
For Patients: As a result of the Century Cures Act, medical imaging exams and procedure reports are released immediately into your electronic medical record. You may view this report before your referring provider. If you have questions, please contact your health care provider. INDICATION: BILATERAL SCREENING MAMMOGRAM, ASYMPTOMATIC 49 Y/O FEMALE COMPARISON: 08/06/2024, 08/03/2023, 08/24/2021 TECHNIQUE: Digital mammogram in CC and MLO projections including computer-aided detection (CAD) and tomosynthesis. BREAST COMPOSITION: There are scattered areas of fibroglandular density. FINDINGS: No suspicious findings. ASSESSMENT: BI-RADS 1 Negative RECOMMENDATION: Annual screening mammogram. A lay language report of this examination will be provided to the patient. Dictated by: Guido Castro MD @ 08/09/2025 10:12:40 (Electronically Signed)
== END 2025-08-08 12:57 | disposition home or self-care (01) ==
LOC: MAMMO 12:56
PROVIDERS: PCP Family Medicine; Visit Provider Family Medicine
DX: Z12.31 Encounter for screening mammogram for malignant neoplasm of breast (principal)
CPT/HCPCS: 77063; 77067